=== PATIENT | male | born 1965 | race Two or more races ===

== ENCOUNTER → 2017-02-14 | Outpatient (CLI) | payer MEDICARE ==
[~2017-02-14] MED LIST: ACYCLOVIR400 MG PO; ATENOLOL25 MG PO; BACTRIM DS TABL1 TA2 PO; ENDOCET 5-3251 EACH PO; GEODAN PO; IBUPROFEN800 MG PO; LISINOPRIL10 MG PO; LORTAB 5-325 M1 EACH PO; NAPROSYN500 MG PO; PREDNISONE PO; PRILOSEC20 M1 PO; PROZAC40 MG PO; TUMS500 M1 PO; ZYRTEC PO
--- NOTE | ~2017-02-14 | NM8 ---
[facility] A Service of [facility] & [facility] RADIOLOGY TEXT RESULTS PATIENT: MECCA AGGARWAL LOCATION: [facility] : 63 UNIT #: [id number] AGE: [address]: Gene Norwood MD SEX: M ORDER DR: [id number] [facility]. [place], [place] [address] [id number] MR#: [id number] #: [id number] NAME: MECCA AGGARWAL : 1965 SEX: M STUDY DATE/TIME: 02/14/2017 10:32 UNIT: [facility] ROOM: STUDY DESCRIPTION: [place] Bone or Joint Whole Body Attending Physician: Gene Norwood M.D. Referring Physician: Gene Norwood M.D. Ordering Physician: Gene Norwood M.D. Primary Care Physician: [facility] MEDICAL IMAGING REPORT This report is preliminary unless electronic signature is present EXAM Whole-body bone scan. DATE: 02/14/2017 HISTORY 51-year-old male with multiple myeloma. Pain in left elbow. Right ankle fusion. Patient states history of fall 2 months ago. Left humerus fracture and twisted right ankle. Currently with left shoulder pain radiating to the left clavicle and left-sided chest pain radiating to the elbow and pain in the right ankle. Left posterior upper arm swelling with difficulty moving. Plate placed in the frontal bone of the skull. History of surgery to the left humerus. History of multiple myeloma in the left arm and right lower extremity diagnosed in 2012, patient states he is in remission. COMPARISON PET/CT 01/07/2017. There is no previous whole-body bone scan at this institution for comparison. FINDINGS Following the administration of 29.7 mCi technetium 99m MDP in a right antecubital fossa vein, anterior and posterior whole body planar images were obtained, and dedicated anterior and posterior planar imaging was obtained of the bilateral forearms, as well. Of note, the technologist states that there was some radiopharmaceutical infiltration in the right antecubital fossa region when flushing with saline post technetium injection, which may account for some uptake seen in this location. Abnormal radiopharmaceutical uptake is demonstrated within the left STS. [facility] A Service of [facility] RADIOLOGY TEXT RESULTS PATIENT: MECCA AGGARWAL LOCATION: CN : 63 UNIT #: [id number] AGE: [address]: Gene Norwood MD SEX: M ORDER DR: temporal calvaria and within the right posterior tenth rib corresponding to the findings on recent PET/CT. There is also abnormal uptake within the upper sternal body and sternal manubrium, diffusely throughout the right tibia, focally within the distal third of the right femoral shaft, and within the left aspect of the mandible, worrisome for active myelomatous process. Slightly less intense uptake is demonstrated within the right greater than left sternoclavicular joints, and within the medial aspect of the left ankle, which could represent either metastatic disease or simply degenerative change. Intense uptake is demonstrated within the region of the left elbow, which could represent active myelomatous process or sequelae of recent trauma. This left elbow uptake appears to only be centered in the supracondylar region but may also involve the ulnar olecranon and there is slight uptake within the region of the proximal third of the ulnar shaft which may represent osseous metastatic disease. There is a rounded area of photopenia near the midline of the calvarium on the frontal view thought to correspond to the patient's cranioplasty. IMPRESSION Multifocal abnormal radiopharmaceutical uptake within the axial and appendicular skeleton as described in detail in the report, worrisome for multifocal active metastatic disease in this patient with history of multiple myeloma. Please refer to the body of the report for full description of findings. Dictated by... Yanely Montenegro M.D. THIS IS AN ELECTRONICALLY VERIFIED REPORT Yanely Montenegro M.D. at 02/15/2017 7:09 AM Stephani TD: 02/14/2017 22:22 JOB #: [id number] MEDICAL IMAGING REPORT Page 1 of 1 COPY
== END | disposition home or self-care (01) ==
LOC: CNUC 06:45
DX: C90.00 Multiple myeloma not having achieved remission (principal); C90.11 Plasma cell leukemia in remission; M25.471 Effusion, right ankle; M25.522 Pain in left elbow; R94.8 Abnormal results of function studies of other organs and systems
CPT/HCPCS: 78306; A9503